=== PATIENT | female | born 1985 | race African-American/Black ===

== ENCOUNTER 2024-01-23 08:10 | Emergency (ER) | payer MEDICAID ==
[~2024-01-23] VITALS: Ht 177.8 cm; Wt 99.8 kg
[2024-01-23 08:13] VITALS: BP 129/84; O2SAT 100
[2024-01-23 08:15] VITALS: PULSE 68; RESP 16; O2SAT 99
[2024-01-23] MEDS ORDERED: LIDOCAINE 5% PATCH TOP SCH (09:00)
[2024-01-23 09:22] VITALS: TEMP 98.7
[2024-01-23] MEDS: ACETAMINOPHEN 325MG TABLET PO ONE (09:22)
[2024-01-23] MEDS: CYCLOBENZAPRINE 10MG TABLET PO ONE (10:03)
== END 2024-01-23 11:45 | disposition home or self-care (01) ==
LOC: ER 08:10
DX: M54.50 Low back pain, unspecified (principal); D57.3 Sickle-cell trait; G89.29 Other chronic pain
CPT/HCPCS: 99283